=== PATIENT | male | born 1985 | race Caucasian/White ===

== ENCOUNTER 2018-07-23 09:32 | Emergency (ER) | payer OTHER ==
[~2018-07-23] VITALS: Ht 172.7 cm; Wt 77.1 kg
[2018-07-23 10:05] LABS: HEMATOCRIT 47.2 % (42.0-52.0); HEMOGLOBIN 16.1 gm/dL (14.0-18.0); MCH 28.8 pg (26.0-34.0); MCV 84.7 fL (80.0-100.0); MPV 9.4 fl. (7.2-11.1); RBC 5.58 mil/uL (4.50-6.00); RDW-CV 13.2 % (10.5-14.5); WBC 14.8 thou/uL (4.0-11.0)
[2018-07-23 10:27] LABS: ALBUMIN 4.1 g/dL (3.4-5.0); CALCIUM 9.4 mg/dL (8.5-10.1); CREATININE 1.6 mg/dL (0.6-1.3); POTASSIUM 3.9 mmol/L (3.5-5.1); TOTAL BILIRUBIN 0.8 mg/dL (<0.1-1.0); TOTAL PROTEIN 7.8 g/dL (6.4-8.2)
[2018-07-23 12:05] LABS: URINE BLOOD 3+ (Negative); URINE CLARITY CLEAR; URINE COLOR YELLOW; URINE GLUCOSE-RANDOM NEGATIVE (Negative); URINE KETONES 2+ (Negative); URINE LEUKOCYTES-REFLEX NEGATIVE (Negative); URINE NITRITE-REFLEX NEGATIVE (Negative); URINE PROTEIN TRACE (Negative); URINE UROBILINOGEN 0.2 E.U./dl (0.2-1.0)
[2018-07-23 12:06] LABS: ICTOTEST (BILI CONFIRMATORY) Negative (Negative); URINE BILIRUBIN 1+ (Negative)
[2018-07-23 12:15] LABS: BACTERIA-REFLEX 1-9 Few /HPF (None Seen); CASTS None Seen /LPF (None Seen); MUCUS 4-6 Moderate strn/LPF (None Seen); SQUAMOUS 0-3 Few /LPF (0-3); URINE RBC >20 Many /HPF (0-2); URINE WBC-REFLEX 0-5 Rare /HPF (0-5)
[2018-07-23 12:16] LABS: CRYSTALS None Seen /LPF (None Seen)
[2018-07-23] MEDS ORDERED: FLOMAX0.4 MG PO (13:42)
[2018-07-23] MEDS ORDERED: HYDROCODONE-AP1 EAC6 PO (13:42)
[2018-07-23] MEDS ORDERED: ZOFRAN ODT4 MG DISSOLVE (13:42)
[2018-07-23 13:55] VITALS: BP 131/81
== END 2018-07-23 13:55 | disposition home or self-care (01) ==
LOC: M.ERS 09:32
PROVIDERS: Emergency Medicine Emergency Medical Services
DX: N20.0 Calculus of kidney (principal); R11.2 Nausea with vomiting, unspecified